=== PATIENT | female | born 1960 | race Caucasian/White ===

== ENCOUNTER 2018-01-12 01:43 | Emergency (ER) | payer OTHER ==
[2018-01-12] MEDS ORDERED: METH10CP (01:53)
[2018-01-12] MEDS ORDERED: ALPR-429 PO ×2 (01:53→01:54)
[2018-01-12] MEDS ORDERED: VITA-175 PO (01:53)
[2018-01-12] MEDS ORDERED: ZINC10LO9 PO (01:53)
[2018-01-12] MEDS ORDERED: L.AC1CAP6 (01:53)
[2018-01-12] MEDS ORDERED: GLUC1TAB39 (01:54)
[2018-01-12] MEDS ORDERED: ESCI20TA38 PO (01:54)
[2018-01-12] MEDS ORDERED: MOM PO (01:54)
[2018-01-12] MEDS ORDERED: CHOL10005 PO (01:54)
--- NOTE | 2018-01-12 02:11 | ER Report ---
History and Physical Time Seen By MD: 02:11 Hx. of Stated Complaint: patient states that she thinks she has altitude sickness; patient has been vomiting and experiencing nausea all day; patient took zofran 4mg today as well last dose was at 01/11 and states that it did not help HPI/ROS CHIEF COMPLAINT: nausea, thinks may be having acute mountain sickness. HISTORY OF PRESENT ILLNESS: This is a 57 year old female. She is having ongoing nausea. Started Friday afternoon about 2pm. They are visiting from [place], [place]. She has had mountain sickness in the past and thinks she may be having this. Went for a walk Friday, started getting a headache and severe nausea, she felt fine prior to the walk. Tried taking Zofran 8mg without improvement. Feels a little short of breath, but mild and felt it was due to the altitude. She has had a severe headache, but this is a little less now. No chest pain. No fevers or chills or cough. Has high blood pressure and takes lisinopril, but in triage, blood pressure was very elevated. Current smoker. Has hypertension and hyperlipidemia, but no history of heart problems. Not on blood thinners. Allergies: Coded Allergies: prednisolone (Verified Allergy, Unknown, 01/12/18) Home Meds Reported Medications Lisinopril (LISINOPRIL) 10 Mg Tablet, 10 MG PO QDAY, TAB 01/12/18 Cholecalciferol (Vitamin D3) (VITAMIN D3) 1,000 Unit Tablet, 1000 UNIT PO, TAB 01/12/18 Magnesium Hydroxide (MILK OF MAGNESIA) 400 Mg/5 Ml Oral.susp, 400 MG PO, BOTTLE 01/12/18 Alprazolam (XANAX) 0.5 Mg Tablet, 0.375 TAB PO TID, TAB 01/12/18 Escitalopram Oxalate (LEXAPRO) 20 Mg Tablet, 10 MG PO QDAY, TAB 01/12/18 Glucosam/Msm/Chond/Hyaluron Ac (SV GLUCOSAMINE-CHONDROITIN TAB) 1 Each Tablet 01/12/18 L.acidoph & Paracasei,B.lactis (Probiotic) 1 Each Capsule 01/12/18 Methylphenidate HCl (Methylphenidate ER) 10 Mg Cpbp.50.50 01/12/18 Alprazolam (XANAX) 0.5 Mg Tablet, 0.125 TAB PO TID, TAB 01/12/18 Vitamin B Complex (B COMPLEX) 1 Each Tablet, 1 EACH PO 01/12/18 Zinc Gluconate (ZINC) 10 Mg Lozenge, 10 MG PO, LOZENGE 01/12/18 Past Medical/Surgical History Hypertension, Hypercholesterolemia, Depression, Anxiety. Reviewed Nurses Notes: Yes Hx Smoking: Yes Smoking Status: Current: Every Day Smoker Constitutional Vital Sign - Last 24 Hours 01/12/18 01/12/18 01/12/18 01/12/18 01:43 01:47 01:54 02:00 Temp 98.7 Pulse ??? 105 Resp 17 B/P (MAP) 201/140 (160) 201/140 205/147 (166) Pulse Ox 88 O2 Delivery Room Air 01/12/18 01/12/18 01/12/18 01/12/18 02:13 02:30 02:32 02:43 Pulse 100 123 Resp 35 B/P (MAP) 194/135 (154) Pulse Ox 91 90 O2 Flow Rate 15.0 01/12/18 01/12/18 01/12/18 01/12/18 02:45 02:48 03:00 03:05 Pulse ??? 146 Resp 37 B/P (MAP) 187/140 (156) Pulse Ox 77 O2 Flow Rate 15.0 01/12/18 01/12/18 01/12/18 01/12/18 03:15 03:18 03:25 03:29 Pulse 132 115 Resp 23 39 B/P (MAP) 105/97 (100) 98/63 (75) ???/??? (0288) Pulse Ox 52 78 01/12/18 01/12/18 01/12/18 01/12/18 03:30 03:32 03:34 03:35 Pulse 134 Resp 12 B/P (MAP) ???/??? (2102) 75/63 (67) 87/50 (62) Pulse Ox 89 01/12/18 01/12/18 01/12/18 01/12/18 03:36 03:38 03:40 03:42 B/P (MAP) 86/64 (71) 105/84 (91) 83/54 (64) 120/95 (103) 01/12/18 01/12/18 01/12/18 01/12/18 03:44 03:45 03:46 03:48 Pulse 124 Resp 39 B/P (MAP) 142/113 (123) 142/115 (124) 127/106 (113) Pulse Ox 87 01/12/18 01/12/18 01/12/18 01/12/18 03:50 03:52 03:54 03:55 Pulse 118 Resp 27 B/P (MAP) 127/100 (109) 128/102 (111) 127/94 (105) Pulse Ox 83 01/12/18 01/12/18 01/12/18 01/12/18 03:56 03:58 04:00 04:02 B/P (MAP) 132/107 (115) 137/107 (117) 136/111 (119) 133/112 (119) 01/12/18 01/12/18 01/12/18 01/12/18 04:04 04:05 04:06 04:08 Pulse 118 Resp 32 B/P (MAP) 134/108 (117) 130/107 (115) 127/103 (111) Pulse Ox 88 01/12/18 01/12/18 01/12/18 01/12/18 04:10 04:12 04:14 04:15 B/P (MAP) 124/101 (109) 120/92 (101) 127/95 (106) FiO2 100.0 01/12/18 01/12/18 01/12/18 01/12/18 04:15 04:16 04:18 04:20 Pulse 109 Resp 31 B/P (MAP) 123/103 (110) 125/102 (110) 126/86 (99) Pulse Ox 86 01/12/18 01/12/18 01/12/18 01/12/18 04:22 04:24 04:25 04:53 Pulse ??? B/P (MAP) 124/109 (114) 133/97 (109) 122/93 (103) 01/12/18 01/12/18 01/12/18 01/12/18 04:54 04:55 04:56 04:58 Pulse 120 Resp 29 B/P (MAP) 131/89 (103) 114/83 (93) 116/90 (99) Pulse Ox 77 01/12/18 01/12/18 01/12/18 01/12/18 05:03 05:03 05:04 05:06 Pulse 120 Resp 32 B/P (MAP) 131/101 (111) 136/93 (107) Pulse Ox 82 82 01/12/18 01/12/18 01/12/18 01/12/18 05:08 05:10 05:14 05:18 B/P (MAP) 118/88 (98) 114/77 (89) 148/115 (126) 54/41 (45) 01/12/18 01/12/18 01/12/18 01/12/18 05:20 05:25 05:32 05:33 Pulse 123 B/P (MAP) 63/22 (36) 132/111 (118) 140/93 (109) Pulse Ox 76 01/12/18 01/12/18 01/12/18 01/12/18 05:34 05:36 05:40 05:43 B/P (MAP) 167/91 (116) 134/101 (112) 77/24 (41) ???/??? (1665) 01/12/18 01/12/18 01/12/18 01/12/18 05:48 05:50 05:55 05:58 B/P (MAP) ???/??? (1665) 133/59 (83) 87/37 (54) 120/94 (103) 01/12/18 01/12/18 01/12/18 01/12/18 06:00 06:02 06:03 06:04 Pulse 116 Resp 50 B/P (MAP) 121/70 (87) 98/23 (48) 55/--- (3:) Pulse Ox 89 01/12/18 01/12/18 01/12/18 01/12/18 06:06 06:07 06:10 06:12 B/P (MAP) 118/61 (80) 95/62 (73) 92/54 (67) 162/111 (128) 01/12/18 01/12/18 01/12/18 01/12/18 06:16 06:18 06:20 06:22 B/P (MAP) 98/76 (83) 109/98 (102) 112/46 (68) 80/61 (67) Intake and Output 01/11/18 01/11/18 01/12/18 15:00 23:00 07:00 Intake Total 1100 ml Balance 1100 ml Physical Exam General Appearance: The patient is alert. Having some distress due to the ongoing nausea. Ill appearing. Eyes: Pupils are equal, round. No pallor, injection or icterus. ENT: Mucous membranes are moist. Normal oral mucosa. Posterior oropharynx is normal. Neck: Supple and non tender. Respiratory: Lungs are clear to auscultation, no rales. Cardiovascular: Sinus tachycardia, but a regular rhythm. No murmurs, gallops or rubs. Normal capillary refill. No edema. Gastrointestinal: Abdomen is soft, discomfort in lower abdomen, but not severe. Nondistended. Normal active bowel sounds. No costovertebral angle tenderness with percussion. Neurological: Alert and oriented x3. Cranial nerves II through XII show no acute deficits on my exam. No focal neurologic deficits in the extremities. Skin: Cool and diaphoretic. Pallor. Musculoskeletal: Extremities are non-tender. no pain in the neck or back. No pain with palpation over the trunk/chest. DIFFERENTIAL DIAGNOSIS: After history and physical exam, differential diagnosis was considered for elevated blood pressure, headache, and nausea. Will need to consider acute mountain sickness, but worry about the blood pressure being elevated and concern for possible metabolic or cardiac problem. Also would worry about cerebral edema or intracranial bleed with headache and elevated blood pressure. Would consider EKG, Troponin, CBC, CMP, Coags, Chest x-ray, non- contrast head CT scan. Medical Decision Making Data Points Result Diagram: 01/12/18 0155 01/12/18 0350 Laboratory Hematology Test 01/12/18 01:55 01/12/18 03:42 01/12/18 03:50 01/12/18 05:46 Red Blood Count 5.85 M/uL (4.17-5.56) Mean Corpuscular Volume 86.8 fL (80.0-96.0) Mean Corpuscular Hemoglobin 28.2 pg (26.0-33.0) Mean Corpuscular Hemoglobin Concent 32.5 g/dL (32.0-36.0) Red Cell Distribution Width 13.9 % (11.5-14.5) Mean Platelet Volume 9.6 fL (7.2-11.1) Neutrophils (%) (Auto) % (39.4-72.5) Lymphocytes (%) (Auto) % (17.6-49.6) Monocytes (%) (Auto) % (4.1-12.4) Eosinophils (%) (Auto) % (0.4-6.7) Basophils (%) (Auto) % (0.3-1.4) Nucleated RBC Relative Count (auto) /100WBC Neutrophils # (Auto) K/uL (2.0-7.4) Lymphocytes # (Auto) K/uL (1.3-3.6) Monocytes # (Auto) K/uL (0.3-1.0) Eosinophils # (Auto) K/uL (0.0-0.5) Basophils # (Auto) K/uL (0.0-0.1) Nucleated RBC Absolute Count (auto) K/uL Neutrophils % (Manual) 66 % (39.4-72.5) Band Neutrophils % 16 % Lymphocytes % (Manual) 6 % (17.6-49.6) Monocytes % (Manual) 8 % (4.1-12.4) Eosinophils % (Manual) 3 % (0.4-6.7) Basophils % (Manual) 1 % (0.3-1.4) Peripheral Blood Smear Yes Y/N Prothrombin Time 13.3 seconds (12.0-14.4) Prothromb Time International Ratio 1.01 Activated Partial Thromboplast Time 30 seconds (23-35) Blood Gas Puncture Site Right radial Blood Gas Patient Temperature 98.7 DEGREES Arterial Blood pH 6.87 (7.35-7.45) Arterial Blood Partial Pressure CO2 51 mmHg (32-37) Arterial Blood Partial Pressure O2 104 mmHg (60-80) Arterial Blood HCO3 9 mmol/L (20-26) Arterial Blood Oxygen Saturation 91 % (92-100) Arterial Blood Base Excess -24.0 mmol/L Brendon Test Acceptable Oxygen Liters/Minute 100 Sodium Level 146 mmol/L (137-145) Potassium Level 4.8 mmol/L (3.5-5.0) Chloride Level 110 mmol/L (98-107) Carbon Dioxide Level 12 mmol/L (22-31) Blood Urea Nitrogen 15 mg/dl (7-18) Creatinine 1.90 mg/dl (0.52-1.04) Glomerular Filtration Rate Calc 27.1 Random Glucose 334 mg/dl (75-110) Calcium Level 9.3 mg/dl (8.4-10.2) Magnesium Level 2.9 mg/dl (1.7-2.2) Total Bilirubin 0.5 mg/dl (0.2-1.3) Aspartate Amino Transf (AST/SGOT) 102 U/L (0-35) Alanine Aminotransferase (ALT/SGPT) 84 U/L (0-56) Alkaline Phosphatase 63 U/L (0-126) Troponin I 7.550 ng/ml Total Protein 6.2 g/dl (6.3-8.2) Albumin 3.8 g/dl (3.5-5.0) Whole Blood Glucose 189 mg/DL (75-110) Chemistry Test 01/12/18 01:55 01/12/18 03:42 01/12/18 03:50 01/12/18 05:46 White Blood Count 23.5 k/uL (4.5-11.0) Red Blood Count 5.85 M/uL (4.17-5.56) Hemoglobin 16.5 g/dL (12.0-16.0) Hematocrit 50.8 % (34.0-47.0) Mean Corpuscular Volume 86.8 fL (80.0-96.0) Mean Corpuscular Hemoglobin 28.2 pg (26.0-33.0) Mean Corpuscular Hemoglobin Concent 32.5 g/dL (32.0-36.0) Red Cell Distribution Width 13.9 % (11.5-14.5) Platelet Count 446 K/uL (150-450) Mean Platelet Volume 9.6 fL (7.2-11.1) Neutrophils (%) (Auto) % (39.4-72.5) Lymphocytes (%) (Auto) % (17.6-49.6) Monocytes (%) (Auto) % (4.1-12.4) Eosinophils (%) (Auto) % (0.4-6.7) Basophils (%) (Auto) % (0.3-1.4) Nucleated RBC Relative Count (auto) /100WBC Neutrophils # (Auto) K/uL (2.0-7.4) Lymphocytes # (Auto) K/uL (1.3-3.6) Monocytes # (Auto) K/uL (0.3-1.0) Eosinophils # (Auto) K/uL (0.0-0.5) Basophils # (Auto) K/uL (0.0-0.1) Nucleated RBC Absolute Count (auto) K/uL Neutrophils % (Manual) 66 % (39.4-72.5) Band Neutrophils % 16 % Lymphocytes % (Manual) 6 % (17.6-49.6) Monocytes % (Manual) 8 % (4.1-12.4) Eosinophils % (Manual) 3 % (0.4-6.7) Basophils % (Manual) 1 % (0.3-1.4) Peripheral Blood Smear Yes Y/N Prothrombin Time 13.3 seconds (12.0-14.4) Prothromb Time International Ratio 1.01 Activated Partial Thromboplast Time 30 seconds (23-35) Blood Gas Puncture Site Right radial Blood Gas Patient Temperature 98.7 DEGREES Arterial Blood pH 6.87 (7.35-7.45) Arterial Blood Partial Pressure CO2 51 mmHg (32-37) Arterial Blood Partial Pressure O2 104 mmHg (60-80) Arterial Blood HCO3 9 mmol/L (20-26) Arterial Blood Oxygen Saturation 91 % (92-100) Arterial Blood Base Excess -24.0 mmol/L Brendon Test Acceptable Oxygen Liters/Minute 100 Glomerular Filtration Rate Calc 27.1 Calcium Level 9.3 mg/dl (8.4-10.2) Magnesium Level 2.9 mg/dl (1.7-2.2) Total Bilirubin 0.5 mg/dl (0.2-1.3) Aspartate Amino Transf (AST/SGOT) 102 U/L (0-35) Alanine Aminotransferase (ALT/SGPT) 84 U/L (0-56) Alkaline Phosphatase 63 U/L (0-126) Troponin I 7.550 ng/ml Total Protein 6.2 g/dl (6.3-8.2) Albumin 3.8 g/dl (3.5-5.0) Whole Blood Glucose 189 mg/DL (75-110) Coagulation Test 01/12/18 01:55 Prothrombin Time 13.3 seconds Prothromb Time International Ratio 1.01 Activated Partial Thromboplast Time 30 seconds EKG/Imaging EKG Interpretation 12 lead EKG: Rhythm: sinus tachycardia, rate 101 [place]: normal QRS: normal ST segments: ST depression in leads V3-V6. No ST elevation. This EKG was faxed to [facility] for review by the demo specialist. 12 lead EKG: Rhythm: Sinus tachycardia, rate 147 [place]: normal QRS: Still narrow ST segments: Continues to show depression 12 lead EKG: Rhythm: sinus tachycardia, rate 104 [place]: normal QRS: normal ST segments: Still with depressions, now with slight depression in the inferior leads. Monitor Interpretation: Other (See multiple code records) Imaging PORTABLE CHEST: Indication: Headache and vomiting. Technique: A single frontal film was obtained. Comparison: None. Skeletal and soft tissue structures: Intact and unremarkable. Heart and mediastinum: The heart size appears normal. Lung alva: There is a diffuse moderate pulmonary edema pattern, which may be related to pulmonary vascular congestion, diffuse infection, or noncardiac causes. No focal consolidation or volume loss is identified. Pleural spaces: Unremarkable. Impression: Diffuse moderate pulmonary edema pattern. Report Dictated By: Ambrosio Blank MD at 01/12/2018 3:[address] Head without contrast Indication: Headache, vomiting, elevated blood pressure. Comparison: None available. Technique: Axial CT images were obtained through the brain from the skull base to the vertex without administration of IV contrast. One of the following dose optimization techniques was utilized in the performance of this exam: Automated exposure control; adjustment of the mA and/or kV according to the patient's size; or use of an iterative reconstruction technique. Specific details can be referenced in the facility's radiology CT exam operational policy. Findings: No evidence of mass, mass effect, or midline shift. No acute intracranial hemorrhage or acute territorial infarction. Skull is nonacute. Globes and orbits are normal. The visualized paranasal sinuses and mastoid air spaces are clear. IMPRESSION: No acute intracranial abnormality. Report Dictated By: Dom Hobbs MD at 01/12/2018 3:16 AM Portable chest: Indication: Tube placement. Technique: A single frontal film was obtained. Comparison: A prior study from earlier the same day at 0303 hours. Lines and tubes: An ET tube is located 4.4 cm above the staci. An NG tube extends into the stomach. Skeletal and soft tissue structures: Intact and unchanged. Heart and mediastinum: Within normal limits. Lung alva: There is a persistent diffuse edema pattern. No new focal opacities are identified. Pleural spaces: Unremarkable. Impression: The ET tube and NG tube are in satisfactory position. There is a persistent diffuse edema pattern. Report Dictated By: Ambrosio Blank MD at 01/12/2018 4:01 AM ED Course/Re-evaluation Clinical Indication for ER IV: Hydration, IV Access ED Course After initial evaluation, concern based on blood pressure being so high. We were going to give Labetalol IV to help bring this down while doing the evaluation, however, the patient says she has had severe anxiety reactions to beta blockers and asked is we could hold off. I talked with them and said we could look at other medicines, but that a beta yuliet might be needed if she is having a cardiac event. We decided to wait for the labs and EKG. EKG showed ST depressions in the anterior leads. I went in to the room and discussed this with the patient, indicating that it appeared that she was having a non-ST elevation OK. Labs obtained and Troponin came back critically elevated at 2.19. I review this result with the patient and her and explained that we would need to get her to another hospital for cardiology care and recommended transfer to [facility]. She had a portable chest x-ray that showed pulmonary edema. Head CT noncontrast obtained which was negative for bleeding. I decided to give nitroglycerin 0.4mg sublingual tablet to because of the NSTEMI at this point and to help bring down the blood pressure a bit. She had no chest pain. She was still a little short of breath prior to CT scan. We were holding off on aspirin or heparin until we had CT results. While the patient was in CT, I talked to Dr. Preston, hospitalist at [facility], and Dr. Chung, cardiology. We faxed them the EKG and they were able to look at this. Recommended CTA as well to rule out aortic dissection. I also had the nurse give metoprolol 5mg IVP and ordered metoprolol 50mg oral dose. The patient returned from her head CT scan while I was finishing my conversation with the doctors in [place], and the nurse called me in because of increasing pulse and decreasing saturations. The patients pulse was elevated to 144 and pulse ox was dropping to 62% despite a non-rebreather face mask at 15 liters at this point. She was becoming altered. Worsening cool and clammy skin with a henriquez appearance. She received the metoprolol IVP, but not the oral dose because of worsening con dition. At this point, we moved her to the critical care room and prepared for intubation and need for a code. She coded, lost her pulse and stopped breathing. Chest compression and bag valve mask were started immediately. Coded for about 1 minute and regained pulse. She was intubated at this point. Pressure after the code was very low, but slowly increasing. We were able to get her saturations to 83-89% on the ventilator, improved with increasing PEEP to 10. OGT placed, miller placed, work on stabilizing. Blood pressure variable, but running high again most of the time, although would vary and drop intermittently. Once stable, was able to go back to CT to get a chest CTA. CTA does not appear to show dissection. Called back and discussed the case with Dr. Preston. During our conversation, and waiting for Dr. Chung to talk with us, the patient coded again. Lost pulse with PEA. Had about 3 minutes of CPR with one dose of epinephrine given, about 2 cycles. Pulse returned. At this point, given the negative CTA, we gave 4000 unit bolus of heparin and 1000 units/hr heparin drip. Rectal aspirin was ordered, but was not given due to other events taking priority. The patient coded again while I was again talking to Dr. Chung and Dr. Preston. Our hospitalist was here and ran the code for a few moments while I talked with the doctors. At this point, the only other option that we felt could be done, was thrombolytics. We felt that this was high risk, but a last ditch effort if she had a PE. CTA was timed for dissection, so we wound not be able to see a PE if present. I took time to explain this option to the patient's , indicating what we were thinking. Explained that at this point, the way to code was going, that she would likely not make it with what we were doing, but that the thrombolytics could also kill her if they caused a massive hemorrhage which was more likely due to the blood we were seeing in the ETT and the OGT and after these multiple rounds of CPR. After discussing this, he agreed to do this. Bolus of the Alteplase was given followed by infusion. Several more cycles of the code was done. PEA throughout with improvement and regaining of the pulse with epinephrine. After multiple cycles of CPR and no improvement, I explained to the patient's the situation and at this time felt like there was nothing else to be done. After our discussion, we elected to discontinue care. This was at 0616 hours. She had regained a pulse and we watched this for a few minutes. As the epinephrine wore off, I explained to the patient's what we were seeing. After several minutes she lost her pulse again and we did not resume CPR. Time of was called 0623 hours. During all of this noted above, working on transport options. Helicopter not available. Fixed wing 2-3 hours out. We do not have the personnel to transport by ground from [place]. We were able to get the flight crew from [place] to come by ground, estimated arrival in about 1 hour. The ground ambulance arrived at the time of the last code and assisted use with treatment during all of this. Re-evaluation Procedure: Rapid sequence intubation. Indication for the procedure was respiratory failure, cardiopulmonary arrest. The patient was preoxygenated with 100% oxygen by bag-valve mask. The patient was given the following IV medications: Etomidate and succinylcholine. The patient was orally endotracheally intubated using the Glidescope with a 7.0 ETT. Tracheal intubation was confirmed by direct visualization; with misting on the tube; breath sounds were auscultated equally bilaterally; appropriate color change with CO2 detector. The patient was placed on the capnography monitor. Chest X-ray shows ETT in good position. The procedure was performed by myself. Decision to Disposition Date: Jan 12, 2018 Decision to Disposition Time: 06:23 Critical Care Time I spent a total of 4 hours of critical care time in obtaining history, performing a physical exam, bedside monitoring of interventions, collecting and interpreting tests and discussion with consultants but not including time spent performing procedures. Depart Departure Latest Vital Signs Vital Signs Date Time Temp Pulse Resp B/P (MAP) Pulse Ox O2 Delivery O2 Flow Rate FiO2 01/12/18 06:22 80/61 (67) 01/12/18 06:03 116 50 89 01/12/18 04:15 100.0 01/12/18 02:45 15.0 01/12/18 01:54 98.7 Room Air Impression: Primary Impression: Non-ST elevated myocardial infarction Additional Impression: Cardiorespiratory arrest Condition: Disposition: Problem Qualifiers MARTINEZ CARBALLO MD Jan 12, 2018 02:11
[2018-01-12] MEDS ORDERED: NS(*) 0.9% 1000 ML BAG 1,000 ML IV ONE (02:20)
[2018-01-12] MEDS ORDERED: ONDANSETRON 4 MG/2 ML VIAL IVP ONE (02:20)
[2018-01-12] MEDS ORDERED: LABETALOL HCL 100 MG/20ML VIAL IVP ONE (02:20)
[2018-01-12 02:34] LABS: PLATELET COUNT, AUTOMATED 446 K/uL (150-450)
--- NOTE | 2018-01-12 02:35 | EKG ---
FACILITY: [facility] PATIENT NAME: LUZ MARIA WOODS : [id number] MR: [id number] V: [id number] EXAM DATE: ORDERING PHYSICIAN: MARTINEZ CARBALLO TECHNOLOGIST: SACHI Galdamez Reason : Blood Pressure : / mmHG Vent. Rate : 101 BPM Atrial Rate : 101 BPM P-R Int : 130 ms QRS Dur : 088 ms QT Int : 404 ms P-R-T Axes : 063 044 058 degrees QTc Int : [address] depression, consider subendocardial injury or digitalis effect Abnormal ECG No previous ECGs available Confirmed by Eder Gerard ([id number]) on 01/12/2018 7:17:26 AM Referred By: Confirmed By:Eder Humphries
[2018-01-12] MEDS ORDERED: NITROGLYCERIN 0.4 MG SUBL SL ONE (02:45)
[2018-01-12] MEDS ORDERED: LISI-362 PO (03:01)
[2018-01-12 03:10] LABS: INR 1.01
[2018-01-12] MEDS ORDERED: METOPROLOL TART 5 MG/5 ML VIAL IVP ONE (03:15)
[2018-01-12] MEDS ORDERED: METOPROLOL TART 50 MG TAB PO ONE (03:15)
[2018-01-12] MEDS ORDERED: MAGNESIUM SUL* 2 GM/50 ML IVPB 50 ML IVPB ONE (03:15)
--- NOTE | 2018-01-12 03:22 | RADIOLOGY IMAGING REPORT ---
FACILITY: [facility] PATIENT NAME: Shaista Walker : 1960 MR: [id number] V: [id number] EXAM DATE: ORDERING PHYSICIAN: MARTINEZ CARBALLO TECHNOLOGIST: Location: [facility] - [place] Patient: Shaista Walker : 1960 Visit/Account:[id number] Date of Sevice: 01/12/2018 PORTABLE CHEST: Indication: Headache and vomiting. Technique: A single frontal film was obtained. Comparison: None. Skeletal and soft tissue structures: Intact and unremarkable. Heart and mediastinum: The heart size appears normal. Lung alva: There is a diffuse moderate pulmonary edema pattern, which may be related to pulmonary v ascular congestion, diffuse infection, or noncardiac causes. No focal consolidation or volume loss is identified. Pleural spaces: Unremarkable. Impression: Diffuse moderate pulmonary edema pattern. Report Dictated By: Ambrosio Blank MD at 01/12/2018 3:14 AM Report E-Signed By: Ambrosio Blank MD at 01/12/2018 3:17 AM WSN:[id number]
--- NOTE | 2018-01-12 03:24 | RADIOLOGY IMAGING REPORT ---
FACILITY: [facility] PATIENT NAME: Shaista Walker : 1960 MR: [id number] V: [id number] EXAM DATE: ORDERING PHYSICIAN: MARTINEZ CARBALLO TECHNOLOGIST: Location: [facility] [place] Patient: Shaista Walker : 1960 Visit/Account:[id number] Date of Sevice: 01/12/2018 CT Head without contrast Indication: Headache, vomiting, elevated blood pressure. Comparison: None available. Technique: Axial CT images were obtained through the brain from the skull base to the vertex without administration of IV contrast. One of the following dose optimization techniques was utilized in th e performance of this exam: Automated exposure control; adjustment of the mA and/or kV according to t he patient's size; or use of an iterative reconstruction technique. Specific details can be referen dania in the facility's radiology CT exam operational policy. Findings: No evidence of mass, mass effect, or midline shift. No acute intracranial hemorrhage or acute territorial infarction. Skull is nonacute. Globes and orbits are normal. The visualized paranasal sinuses and mastoid air spaces are clear. IMPRESSION: No acute intracranial abnormality. Report Dictated By: Dom Hobbs MD at 01/12/2018 3:16 AM Report E-Signed By: Dom Hobbs MD at 01/12/2018 3:19 AM WSN:[id number]
[2018-01-12] MEDS ORDERED: NS(*) 0.9% 100 ML BAG 100 ML ONE (03:52)
--- NOTE | 2018-01-12 04:07 | RADIOLOGY IMAGING REPORT ---
FACILITY: [facility] - [place] PATIENT NAME: Shaista Walker : 1960 MR: [id number] V: [id number] EXAM DATE: ORDERING PHYSICIAN: MARTINEZ CARBALLO TECHNOLOGIST: Location: [facility] [place] Patient: Shaista Walker : 1960 Visit/Account:[id number] Date of Sevice: 01/12/2018 Portable chest: Indication: Tube placement. Technique: A single frontal film was obtained. Comparison: A prior study from earlier the same day at 0303 hours. Lines and tubes: An ET tube is located 4.4 cm above the staci. An NG tube extends into the stomach. Skeletal and soft tissue structures: Intact and unchanged. Heart and mediastinum: Within normal limits. Lung alva: There is a persistent diffuse edema pattern. No new focal opacities are identified. Pleural spaces: Unremarkable. Impression: The ET tube and NG tube are in satisfactory position. There is a persistent diffuse edema pattern. Report Dictated By: Ambrosio Blank MD at 01/12/2018 4:01 AM Report E-Signed By: Ambrosio Blank MD at 01/12/2018 4:02 AM WSN:[id number]
[2018-01-12] MEDS ORDERED: NS(*) 0.9% 50 ML BAG 50 ML ONE (04:09)
[2018-01-12] MEDS ORDERED: IOPAMIDOL 76% 75 ML INFUS BTL 75 ML ONE (04:09)
[2018-01-12] MEDS ORDERED: IOPAMIDOL 76% 50 ML INFUS BTL 50 ML ONE (04:34)
[2018-01-12] MEDS ORDERED: ASPIRIN 300 MG SUPP PR ONE (05:28)
[2018-01-12] MEDS ORDERED: HEPARIN* SOD/D5W 25000 U/500ML 500 ML IV ONE (05:29)
[2018-01-12] MEDS ORDERED: HEPARIN FLSH (PORT) 500 UN/5ML ONE (05:29)
[2018-01-12] MEDS ORDERED: HEPARIN (PORC) 5000 UN/ML VIAL ONE (05:31)
--- NOTE | 2018-01-12 05:32 | RADIOLOGY IMAGING REPORT ---
FACILITY: [facility] - [place] PATIENT NAME: Shaista Walker : 1960 MR: [id number] V: [id number] EXAM DATE: ORDERING PHYSICIAN: MARTINEZ CARBALLO TECHNOLOGIST: Location: [facility] - [place] Patient: Shaista Walker : 1960 Visit/Account:[id number] Date of Sevice: 01/12/2018 CTA chest DATE: 01/12/2018 5:11 AM INDICATION: Non-ST elevation myocardial infarction. COMPARISON: Same-day chest radiographs. TECHNIQUE: Pre and postcontrast chest CT obtained. 2-D and 3-D imaging was performed. 100 mL isovue 370. One of the following dose optimization techniques was utilized in the performance of this exam : Automated exposure control; adjustment of the mA and/or kV according to the patient's size; or use of an iterative reconstruction technique. Specific details can be referenced in the facility's [facility] CT exam operational policy. FINDINGS: Angiographic findings: The aorta is nonaneurysmal. No dissection or significant atherosclerosis. Thyroid / Thoracic Inlet: Possible small nodule in the inferior aspect of the thyroid. No supraclavi cular lymphadenopathy. Pulmonary Arteries: Central pulmonary arteries are unremarkable. Heart: Normal-size heart with no pericardial effusion. Mediastinum and [place]: No lymphadenopathy. Lungs and Pleura: There may be trace pleural effusions. There is extensive posterior consolidation i n the upper and lower lobes with associated air bronchograms. Multifocal additional bilateral ground glass opacification, as well as interlobular septal thickening. Endotracheal tube terminates in the mid thoracic trachea. Breast and Axilla: No axillary lymphadenopathy. Upper Abdomen: There is an ovoid mass in the upper abdomen arising from more displacing the right adr enal gland, measuring 5.1 x 3.6 cm on image 113 series 10. Esophagogastric tube enters the stomach, tip is not imaged. Bones and Soft Tissues: There is an acute appearing nondisplaced fracture through the mid to upper st ernum. Suspected additional nondisplaced anterior buckle fractures of the right 4th and 5th ribs. IMPRESSION: 1. Nonaneurysmal aorta with no dissection or significant atherosclerosis. 2. Extensive pulmonary opacifications as described likely with at least partial infectious/inflammat ory component. There is also likely underlying pulmonary edema, and hemorrhage is also a considerati on. Recommend follow-up at resolution to exclude any suspicious lesion. 3. Nondisplaced sternal fracture and suspected nondisplaced anterior fractures of the right 4th and 5th ribs likely related to CPR. 4. Indeterminate 5.1 cm mass in the upper abdomen displacing or arising from the right adrenal gland . The differential is broad and includes both benign and malignant primary lesions as well as metast ases. This could be further evaluated on a nonemergent basis with adrenal mass protocol MRI or CT. Correlate with any history of malignancy. Dr. Hobbs discussed this case with patient's care team on 01/12/2018 5:27 AM. Report Dictated By: Dom Hobbs MD at 01/12/2018 5:11 AM Report E-Signed By: Dom Hobbs MD at 01/12/2018 5:28 AM WSN:[id number]
[2018-01-12] MEDS ORDERED: ALTEPLASE RECOMB 100 MG ONE (05:53)
[2018-01-12] MEDS ORDERED: EPINEPHrine INJ 1 MG/10 ML SYR ONE (06:01)
[2018-01-12 06:22] VITALS: BP 80/61
[2018-01-12] MEDS ORDERED: LEVOPHED KIT (*) 1 IVSOL 0 KIT IV ONE (06:30)
--- NOTE | 2018-01-12 06:47 | EKG ---
FACILITY: [facility] - [place] PATIENT NAME: LUZ MARIA WOODS : [id number] MR: [id number] V: [id number] EXAM DATE: ORDERING PHYSICIAN: MARTINEZ CARBALLO TECHNOLOGIST: SACHI Galdamez Reason : Blood Pressure : / mmHG Vent. Rate : 147 BPM Atrial Rate : 147 BPM P-R Int : 136 ms QRS Dur : 102 ms QT Int : 354 ms P-R-T Axes : 046 -15 080 degrees QTc Int : 554 ms Sinus tachycardia Possible Left atrial enlargement ST and T wave abnormality, consider lateral ischemia Abnormal ECG When compared with ECG of 12-JAN-2018 02:27, Questionable change in QRS axis ST less depressed in Anterior leads Confirmed by Eder Gerard ([id number]) on 01/12/2018 7:17:42 AM Referred By: Confirmed By:Eder Humphries
--- NOTE | 2018-01-12 11:06 | EKG ---
FACILITY: [facility] PATIENT NAME: LUZ MARIA WOODS : [id number] MR: [id number] V: [id number] EXAM DATE: ORDERING PHYSICIAN: MARTINEZ CARBALLO TECHNOLOGIST: SACHI Galdamez Reason : Blood Pressure : / mmHG Vent. Rate : 104 BPM Atrial Rate : 104 BPM P-R Int : 148 ms QRS Dur : 100 ms QT Int : 370 ms P-R-T Axes : 072 038 073 degrees QTc Int : 486 ms Sinus tachycardia Possible Left atrial enlargement Nonspecific ST and T wave abnormality Abnormal ECG When compared with ECG of 12-JAN-2018 03:07, No significant change was found Confirmed by GULSHAN BONE ([id number]) on 01/13/2018 6:30:48 AM Referred By: Confirmed By:GULSHAN BONE
== END 2018-01-12 06:23 | disposition expired ==
LOC: ER 02:57
DX: I21.4 Non-ST elevation (NSTEMI) myocardial infarction (principal); I46.9 Cardiac arrest, cause unspecified
CPT/HCPCS: 31500; 36415; 36416; 36600; 70450; 71045; 71275; 82803; 82948; 83735; 84484; 85025; 85610; 85730; 93005; 94002; 96361; 96374; 96375; 99291; 99292; C1758; J0171; J0330; J1644; J2250; J2405; J2704; J2997; J3010; J3490; J7030; J7050; Q9967; 82040; 82247; 82310; 82374; 82435; 82565; 82947; 84075; 84132; 84155; 84295; 84450; 84460; 84520